=== PATIENT | female | born 1995 | race Caucasian/White ===

== ENCOUNTER 2016-08-22 16:14 | Emergency (ER) | payer OTHER | END 2016-08-22 21:18 | disposition home or self-care (01) | LOC: ER 16:14 | DX: N39.0 Urinary tract infection, site not specified (principal); Z79.899 Other long term (current) drug therapy; Z88.0 Allergy status to penicillin; Z88.2 Allergy status to sulfonamides | CPT/HCPCS: 36415; 96374; 96375 ==